=== PATIENT | female | born 1990 | race Caucasian/White ===

== ENCOUNTER → 2022-12-04 | Outpatient (CLI) | payer OTHER | LOC: M WUC 08:34 | PROVIDERS: ATTEND Nurse Practitioner Adult Health | DX: R94.6 Abnormal results of thyroid function studies (principal); R14.0 Abdominal distension (gaseous); Z13.0 Encounter for screening for diseases of the blood and blood-forming organs and certain disorders involving the immune mechanism; Z13.220 Encounter for screening for lipoid disorders ==

== ENCOUNTER → 2022-12-04 | Outpatient (CLI) | payer OTHER | LOC: M LAB 09:50 | PROVIDERS: ATTEND Nurse Practitioner Adult Health | DX: R94.6 Abnormal results of thyroid function studies (principal) ==

== ENCOUNTER → 2022-12-21 | Outpatient (CLI) | payer OTHER ==
[2022-12-21 09:22] LABS: BASO % 0.2 % (0.0-1.0); EOS # 0.1 10^3/uL (0.0-0.5); EOS % 2.4 % (0.0-3.0); HEMOGLOBIN 13.3 g/dl (12.0-15.5); LYMPH # 1.1 10^3/uL (1.5-5.0); LYMPH % 25.3 % (24.0-44.0); MEAN CORPUSCULAR HEMOGLOBIN 30.5 pg (27.0-33.0); MEAN CORPUSCULAR HGB CONC 31.7 g/dl (32.0-36.5); MEAN CORPUSCULAR VOLUME 96.3 fl (80.0-96.0); MONO # 0.4 10^3/uL (0.0-0.8); MONO % 9.9 % (2.0-8.0); NEUTROPHILS # 2.6 10^3/uL (1.5-8.5); PLATELET COUNT, AUTOMATED 194 10^3/uL (150-450); RED BLOOD COUNT 4.36 10^6/uL (4.00-5.40); WHITE BLOOD COUNT 4.2 10^3/uL (4.0-10.0)
[2022-12-21 09:38] LABS: ALKALINE PHOSPHATASE 50 U/L (46-116); ALT/SGPT 15 U/L (7.0-40); AST/SGOT 13 U/L (<34); BILIRUBIN,TOTAL 0.8 MG/DL (0.3-1.2); BLOOD UREA NITROGEN 13 MG/DL (9-23); CALCIUM LEVEL 9.3 MG/DL (8.5-10.1); CARBON DIOXIDE LEVEL 28 MMOL/L (20-31); CHLORIDE LEVEL 108 MMOL/L (98-107); CHOLESTEROL LEVEL 200 MG/DL (<200); CHOLESTEROL RISK RATIO 3.33 (<5); CREATININE FOR GFR 0.75 MG/DL (0.55-1.30); GLOMERULAR FILTRATION RATE > 60.0 (>60); GLUCOSE, FASTING 88 MG/DL (60-100); IRON (FE) 79 UG/DL (50-170); LDL CHOLESTEROL 128.4 MG/DL (<100); PERCENT SATURATION 23.4 % (13.2-45.0); POTASSIUM SERUM 4.3 MMOL/L (3.5-5.1); SODIUM LEVEL 140 MMOL/L (136-145); TOTAL IRON BINDING CAPACITY 338 UG/DL (250-425); TOTAL PROTEIN 6.7 G/DL (5.7-8.2); TRIGLYCERIDES LEVEL 58 MG/DL (<150)
[2022-12-21 09:39] LABS: FREE T4 0.82 NG/DL (0.89-1.76); THYROID STIMULATING HORMONE 6.155 uIU/ML (0.55-4.78)
[2022-12-21 09:40] LABS: FOLATE 14.6 NG/ML (>5.4); VITAMIN B12 LEVEL 562 PG/ML (211-911)
== END ==
LOC: M LAB 08:07
PROVIDERS: ATTEND Nurse Practitioner Adult Health
DX: R94.6 Abnormal results of thyroid function studies (principal); Z13.0 Encounter for screening for diseases of the blood and blood-forming organs and certain disorders involving the immune mechanism; Z13.220 Encounter for screening for lipoid disorders; R14.0 Abdominal distension (gaseous)

== ENCOUNTER → 2023-02-23 | Outpatient (CLI) | payer OTHER ==
[2023-02-23 08:35] LABS: THYROID STIMULATING HORMONE 5.646 uIU/ML (0.55-4.78)
[2023-02-23 08:36] LABS: FREE T4 0.83 NG/DL (0.89-1.76)
== END ==
LOC: M LAB 07:22
PROVIDERS: ATTEND Family Medicine
DX: E03.9 Hypothyroidism, unspecified (principal)

== ENCOUNTER → 2024-03-02 | Outpatient (CLI) | payer OTHER | LOC: M RAD 07:58 | PROVIDERS: ATTEND Nurse Practitioner Adult Health | DX: M25.561 Pain in right knee (principal) ==

== ENCOUNTER → 2024-05-03 | Outpatient (CLI) | payer OTHER | LOC: M RAD 10:18 | PROVIDERS: ATTEND Nurse Practitioner Adult Health | DX: M25.561 Pain in right knee (principal) ==

== ENCOUNTER → 2024-05-31 | Outpatient (CLI) | payer OTHER | LOC: M PLAIMG 16:13 | PROVIDERS: ATTEND Family Medicine | DX: J20.9 Acute bronchitis, unspecified (principal) ==

== ENCOUNTER → 2024-07-03 | Outpatient (CLI) | payer OTHER | LOC: M PLAIMG 14:21 | PROVIDERS: ATTEND Nurse Practitioner Adult Health | DX: R07.81 Pleurodynia (principal) ==